=== PATIENT | female | born 1990 | race Caucasian/White ===

== ENCOUNTER 2016-08-29 15:01 | Emergency (ER) | payer SELFPAY ==
[~2016-08-29] VITALS: Ht 154.9 cm; Wt 65.8 kg
[~2016-08-29 15:01] MED LIST: DIVA500T2 PO
[2016-08-29 15:06] VITALS: BP 106/72
== END 2016-08-29 16:46 | disposition left against medical advice (07) ==
LOC: ER 15:01
DX: K08.89 Other specified disorders of teeth and supporting structures (principal)

== ENCOUNTER 2019-06-25 11:40 | Emergency (ER) | payer OTHER ==
[~2019-06-25] VITALS: Ht 154.9 cm; Wt 68.1 kg
[2019-06-25 12:15] VITALS: BP 115/56
--- NOTE | 2019-06-25 12:53 | PHYS DOC ---
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 She states it hurts more with movement. She states it goes from her left shoulder blade down to about mid back on the left side. There is no spinal pain. She states she is here for a work comp. Rates her pain a 3 out of 10. Review of Systems Review of Systems Musculoskeletal: Left mid back pain or joint pain [] All other systems were reviewed and found to be within normal limits, except as documented in this note. Allergies Allergies Allergies Coded Allergies Type Severity Reaction Last Updated Verified No Known Drug Allergies 08/27/13 No Physical Exam Physical Exam Constitutional: Well developed, well nourished, no acute distress, non-toxic appearance. [] HENT: Normocephalic, atraumatic, bilateral external ears normal, oropharynx moist, no oral exudates, nose normal. [] Eyes: PERRLA, EOMI, conjunctiva normal, no discharge. [] Neck: Normal range of motion, no tenderness, supple, no stridor. [] Cardiovascular:Heart rate regular rhythm, no murmur [] Lungs & Thorax: Bilateral breath sounds clear to auscultation [] Abdomen: Bowel sounds normal, soft, no tenderness, no masses, no pulsatile masses. [] Skin: Warm, dry, no erythema, no rash. [] Back: Left mid tenderness, no CVA tenderness. [] Extremities: No tenderness, no cyanosis, no clubbing, ROM intact, no edema. [] Neurologic: Alert and oriented X 3, normal motor function, normal sensory function, no focal deficits noted. [] Psychologic: Affect normal, judgement normal, mood normal. [] Current Patient Data Vital Signs Vital Signs Date Time Temp Pulse Resp B/P (MAP) Pulse Ox O2 Delivery O2 Flow Rate FiO2 06/25/19 12:15 98.1 69 15 115/56 (75) 99 Room Air 98.1 Lab Values Laboratory Tests Test 06/25/19 12:36 POC Urine HCG, Qualitative Hcg negative (Negative) EKG EKG [] Radiology/Procedures Radiology/Procedures [] Course & Med Decision Making Course & Med Decision Making Alert and oriented. Speaks full clear sentences. Ambulatory with a steady gait. No bruising or abrasions to her back. Tenderness to the left mid back. No spinal pain with palpation. Patient can move all extremities equally with equal strength. Patient can twist and turn and then without complication but there is some pain. She denies any numbness or tingling or dizziness weakness. No saddle paresthesia. Patient did not lose bowel or bladder. Patient refusing [place] or muscle relaxers in the emergency room. She states ibuprofen will be fine. Dragon Disclaimer Dragon Disclaimer This electronic medical record was generated, in whole or in part, using a voice recognition dictation system. Departure Departure Impression: Primary Impression: Back strain Disposition: HOME, SELF-CARE Condition: STABLE Referrals: LAURENCE GONZALES MD (PCP) Patient Instructions: Muscle Strain Additional Instructions: Follow-up with primary care provider or work comp. Use a heating pad. Take ibuprofen for your pain. Problem Qualifiers Primary Impression: Back strain Encounter type: initial encounter Qualified Codes: S39.012A - Strain of muscle, fascia and tendon of lower back, initial encounter KEVIN MAY APRN Jun 25, 2019 12:53
== END 2019-06-25 13:01 | disposition home or self-care (01) ==
LOC: ER 11:40
DX: S39.012A Strain of muscle, fascia and tendon of lower back, initial encounter (principal); F31.9 Bipolar disorder, unspecified; Z87.891 Personal history of nicotine dependence; X50.0XXA Overexertion from strenuous movement or load, initial encounter; Y93.89 Activity, other specified; Y92.89 Other specified places as the place of occurrence of the external cause; Y99.8 Other external cause status
CPT/HCPCS: 81025; 99282

== ENCOUNTER 2020-09-16 22:21 | Emergency (ER) | payer SELFPAY ==
[~2020-09-16] VITALS: Ht 154.9 cm; Wt 59.1 kg
[2020-09-16 22:39] VITALS: BP 94/61
[2020-09-16] MEDS ORDERED: CHLO15MO2 PO (23:11)
--- NOTE | 2020-09-16 23:11 | PHYS DOC ---
Past Medical History Past Medical History: Bipolar Past Surgical History: No Surgical History Smoking Status: Former Smoker Alcohol Use: None Drug Use: None General Adult EDM: Chief Complaint: DENTAL PROBLEM HPI: HPI: Patient is a 30yo female presenting for dental issues. She has dentist follow-up next week for teeth extraction given numerous known dental caries. She reports increased gingival swelling and pain. No other systemic symptoms reported. She is requesting pain control in the form of a mouthwash which helped her in the past prior to dentist appointment for definitive management Review of Systems: Review of Systems: Fourteen body systems of review of systems have been reviewed. See HPI for pertinent positives and negative responses, other buck all other systems are negative, non-pertinent or non-contributory Heart Score: C/O Chest Pain: No Risk Factors: Risk Factors: DM, Current or recent (<one month) smoker, HTN, HLP, family history of CAD, obesity. Risk Scores: Score 0 - 3: 2.5% MACE over next 6 weeks - Discharge Home Score 4 - 6: 20.3% MACE over next 6 weeks - Admit for Clinical Observation Score 7 - 10: 72.7% MACE over next 6 weeks - Early Invasive Strategies Allergies: Allergies: Allergies Coded Allergies Type Severity Reaction Last Updated Verified No Known Drug Allergies 08/27/13 No Physical Exam: PE: Constitutional: Well developed, well nourished,appears uncomfortable due to pain, non-toxic appearance. HENT: Normocephalic, atraumatic, bilateral external ears normal, oropharynx moist, poor dentition, numerous dental caries without obvious abscess or other concerning findings of acute infection, no oral exudates, nose normal. Eyes: PERRLA, EOMI, conjunctiva normal, no discharge. Neck: Normal range of motion, no tenderness, supple, no stridor. Cardiovascular: Heart rate regular per monitor Lungs & Thorax: No respiratory distress or accessory muscle use, bilateral chest rise Abdomen: Abdomen soft, non-tender, bowel sounds present in all quadrants, no guarding or rebound, nonacute abdomen. Skin: Warm, dry, no erythema, no rash. Back: No tenderness, no CVA tenderness. Extremities: No tenderness, no cyanosis, no clubbing, ROM intact, no edema. Neurologic: Alert and oriented X 3, grossly normal motor & sensory function, no focal deficits noted. Psychologic: Affect normal, judgement normal, mood normal. Current Patient Data: Vital Signs: Vital Signs Date Time Temp Pulse Resp B/P (MAP) Pulse Ox O2 Delivery O2 Flow Rate FiO2 09/16/20 22:39 97.9 76 18 94/61 (72) 98 Room Air 97.9 EKG: EKG: [] Radiology/Procedures: Radiology/Procedures: [] Course & Med Decision Making: Course & Med Decision Making VSS, HPI and PE concerning for dental carries that do not require antibiotics Magic mouthwash given in ER and bottle given to take with her home. She has good access to dentist for definitive mgmt of her dental carries and can be seen in upcoming 24-48 hours Strict return precautions discussed with good understanding Mago Disclaimer: Mago Disclaimer: This electronic medical record was generated, in whole or in part, using a voice recognition dictation system. Departure Departure Impression: Primary Impression: Pain, dental Disposition: HOME / SELF CARE / HOMELESS Condition: STABLE Referrals: LAURENCE GONZALES MD (PCP) Patient Instructions: Dental Pain Additional Instructions: You were seen for dental pain. There does not appear to be any infection at this time. Take Ibuprofen (600-800mg) and Tylenol (500-650mg) alternating every 4-6 hours to help with inflammation and pain while you contact a dentist for further care. Please use the Magic mouthwash that was provided to you prior to your ER departure daily until you see your dentist this upcoming Friday as previously scheduled. You should return to the ED if you develop worsening pain, fever > 101, swelling, redness, or any other new or concerning symptoms. Unfortunately, your pain is not likely to improve without seeing a dentist for further evaluation and treatment of your poor dentition and dental caries. Scripts Chlorhexidine Gluconate (PERIDEX) 15 Ml Mouthwash 15-30 ML PO TID for 8 Days, #473 ML 0 Refills Prov: MALLORY OBANDO DO 09/16/20 MALLORY OBANDO DO September 16, 2020 23:11
[2020-09-16] MEDS ORDERED: LIDO:MAALOX:BENADRYL 1:1:1 180 ML BOTTLE. PO PRN (23:15)
== END 2020-09-16 23:20 | disposition home or self-care (01) ==
LOC: ER 22:21
DX: K08.89 Other specified disorders of teeth and supporting structures (principal); F31.9 Bipolar disorder, unspecified; Z87.891 Personal history of nicotine dependence
CPT/HCPCS: 99283